=== PATIENT | female | born 1985 | race Caucasian/White ===

== ENCOUNTER 2016-11-19 10:52 | Inpatient (IN) | payer BC ==
[~2016-11-19] VITALS: Ht 160 cm; Wt 84.5 kg
[~2016-11-19 10:52] MED LIST: MTR600X PO; PRENTAB26 PO
[2016-11-19] MEDS ORDERED: LACTATED RINGER'S 1000ML 1,000 ML IV SCH (11:18)
[2016-11-19] MEDS ORDERED: LACTATED RINGER'S 1000ML 1,000 ML IV PRN (11:18)
--- NOTE | 2016-11-19 11:21 | Progress Note ---
Progress Note Admit Note 31 F P2002 at 39.3 weeks admitted in active labor. Cervix 6-7/100/-2/vertex/ membranes intact. FHT Cat 1. GBS negative. Will admit in labor and anticipate normal delivery.
[2016-11-19 11:41] VITALS: Ht 160 cm; Wt 84.5 kg
[2016-11-19] MEDS ORDERED: CHOL1000 PO (11:42)
[2016-11-19 12:03] LABS: HEMATOCRIT 37.2 % (37-47); MEAN CELL VOLUME 82.7 fL (80-100); MEAN CORPUSCULAR HEMOGLOBIN 27.3 pg (25-34); MEAN CORPUSCULAR HGB CONC 33.1 g/dl (32-36); MEAN PLATELET VOLUME 10.1 fL (7.4-10.4); PLATELET COUNT 265 K/uL (130-400); WHITE BLOOD COUNT 12.87 K/uL (4.8-10.8)
--- NOTE | 2016-11-19 14:24 | Progress Note ---
Progress Note cervix 8-9/100/-1 AROM clear fluid FHT Cat 1
--- NOTE | 2016-11-19 15:41 | Progress Note ---
Progress Note Delivery Note live male over intact perineum with Apgars 8/9 weight pending. Delayed cord clamping followed by cord blood collection and spontaneous delivery of intact placenta. No tears. Uterus firm below U and massaged with no bleeding noted. Patient did not want Pitocin. EBL 100 ml. Final sponge and instrument count are correct. Mom and baby stable.
[2016-11-19] MEDS ORDERED: ACETAMINOPHEN 325 MG TAB PO PRN (15:45)
[2016-11-19] MEDS ORDERED: OXYCODONE/ACETAMINOPHEN 5-325 TAB PO PRN (15:45)
[2016-11-19] MEDS ORDERED: MEASLES, MUMPS & RUBELLA VIRUS VIAL SQ. ONE (15:45)
[2016-11-19] MEDS ORDERED: ACETAMINOPHEN/CODEINE 300/30MG TAB PO PRN ×2 (15:45)
[2016-11-19] MEDS ORDERED: LANOLIN OINT EXT PRN ×2 (15:45)
[2016-11-19] MEDS ORDERED: DIPHTHERIA/TETANUS/PERTUSSIS 0.5 ML SYR/VIAL IM. ONE (15:45)
[2016-11-19] MEDS ORDERED: SUPERCREAM 0.870 % 15GM JAR EXT PRN (15:45)
[2016-11-19] MEDS ORDERED: BENZOCAINE 20% AER SPR 82.5 GM CAN EXT PRN (15:45)
[2016-11-19] MEDS ORDERED: HYDROCORTISONE ACETATE 25 MG SUPP PR PRN (15:45)
[2016-11-19] MEDS: DOCUSATE SODIUM 100 MG CAP PO SCH (20:12)
[2016-11-19 20:15] VITALS: BP 106/71; PULSE 80; TEMP 36.3; O2SAT 97
[2016-11-19] MEDS: IBUPROFEN 600 MG TAB PO PRN (22:42)
[2016-11-20 00:35] VITALS: BP 116/70; PULSE 75; TEMP 36.9; O2SAT 97
[2016-11-20 04:15] VITALS: BP 115/77; PULSE 73; TEMP 36.6; O2SAT 97
[2016-11-20 06:54] LABS: HEMATOCRIT 33.8 % (37-47)
[2016-11-20 07:45] VITALS: BP 106/70; PULSE 65; TEMP 36.5; O2SAT 97
[2016-11-20] MEDS: DOCUSATE SODIUM 100 MG CAP PO SCH ×2 (08:22→20:36)
[2016-11-20] MEDS: PRENATAL VITAMIN TAB PO SCH (08:22)
[2016-11-20] MEDS: FERROUS SULFATE 325 MG TAB PO SCH (08:22)
[2016-11-20] MEDS: IBUPROFEN 600 MG TAB PO PRN ×2 (08:23→20:35)
--- NOTE | 2016-11-20 08:59 | OB/GYN Progress Note ---
CLINICAL INFORMATICS SPECIALIST Progress Note Date of Service: Nov 20, 2016. Patient is seen and examined. She feels well, no complaints. Ambulating without dizziness Voiding without difficulty Tolerating regular diet with out N&V Bleeding is minimal No fever/ chills/ CP/ SOB/ N&V/ Leg pain Breast feeding without problems Date Time Temp Pulse Resp B/P Pulse Ox O2 Delivery O2 Flow Rate FiO2 11/20/16 07:45 36.5 65 18 106/70 97 Room Air 11/20/16 07:45 97 Room Air 11/20/16 04:15 36.6 73 18 115/77 97 Room Air 11/20/16 00:35 97 Room Air 11/20/16 00:35 36.9 75 16 116/70 97 Room Air 11/19/16 20:15 36.3 80 16 106/71 97 Room Air PE: General: Alert, orientedx3, NAD Abd: soft, NT, fundus firm, below Umbilicus Perineum intact, Lochia rubra minimal Ext; NT, no edema AP: 31 yo s/p , ppd# 1 VSS Afebrile doing well Continue routine care All questions were answered D/C home tomorrow
[2016-11-20 11:00] VITALS: BP 100/64; PULSE 71; TEMP 36.6
[2016-11-20 16:15] VITALS: BP 102/68; PULSE 72; TEMP 36.6
[2016-11-20] MEDS ORDERED: BISACODYL 5 MG TABEC PO SCH (20:00)
[2016-11-20 23:20] VITALS: BP 101/64; PULSE 77; TEMP 36.6; O2SAT 97
[2016-11-21] MEDS ORDERED: BISACODYL 10 MG SUPP PR PRN (07:00)
[2016-11-21 07:40] VITALS: BP 102/64; PULSE 73; TEMP 36.6
[2016-11-21] MEDS: FERROUS SULFATE 325 MG TAB PO SCH (08:11)
[2016-11-21] MEDS: DOCUSATE SODIUM 100 MG CAP PO SCH (08:11)
[2016-11-21] MEDS: PRENATAL VITAMIN TAB PO SCH (08:11)
--- NOTE | 2016-11-21 09:47 | Discharge Instructions ---
Discharge Instructions Admission Reason for Admission: Check Labor Discharge Discharge Diagnosis / Problem: Vaginal Delivery Discharge Goals Goal(s): Routine recovery after delivery Medications Continue Dispensed Medications: supercream, dermaplast, tucks, lansinoh Activity Recommendations Activity Limitations: per Instructions/Follow-up section . Instructions / Follow-Up Instructions / Follow-Up ACTIVITY RECOMMENDATIONS: * Gradual return to full activity over the next 2-3 weeks. * No lifting - nothing heavier than baby over the next 2-3 weeks. * Do not engage in vigorous exercise, sexual activity or sports until cleared by your physician. * Do not drive or operate any motorized equipment until cleared by your physician. * You may shower/bathe daily. BREAST CARE: If you are not breast feeding: * Wear a supportive bra 24 hours a day for one to two weeks. * Avoid stimulating your breasts and nipples as much as possible during the first few weeks after delivery. * When taking a shower, have the warm water hit your back, not breasts. * When your breasts feel full, apply ice packs. Usually three to four times a day helps ease the discomfort. * Take a mild pain medication (Tylenol/Motrin) when you are uncomfortable. If breast feeding: * Use breast milk to lubricate nipples. Lansinoh cream may be used for sore nipples. You do not need to remove cream prior to breast feeding. If using a different brand of cream, check the label for directions regarding removal of cream prior to nursing. * Wear a supportive bra. * If having problems with breasts or breast feeding, call a it consultant or your health care provider. EPISIOTOMY CARE: After delivery, if you have an episiotomy (stitches), the following steps will ease discomfort and aid healing. * For the first 24 hours after delivery, place ice packs next to your episiotomy to help reduce swelling. * After the first 24 hour-period, sitz baths, either portable or in the tub, are suggested. A shower with a shower arm sprayed over the episiotomy may be comforting. * Gifty care should be done after each voiding and bowel movement. Squirt warm water from a plastic bottle over the perineum (region of the body between the anus and urinary opening) and pat dry. * Use Dermoplast to ease discomfort. Shake container. [place] directly over the episiotomy. * Place a Tucks on a clean sanitary pad next to your episiotomy. OVER THE COUNTER MEDICATION: * For discomfort or pain, you may use Acetaminophen (Tylenol), Ibuprofen (Advil ), or Naproxen (Aleve) following the package directions. * For constipation you may use Colace following the package directions. SPECIAL CARE INSTRUCTIONS: When you are discharged from the hospital, it is important for you to follow the instructions listed below: * During the first week at home, you should be able to care for yourself and your baby. In addition, the usual light household activities are encouraged. * Limit your activities to the way you feel. Do not try to clean the house or move furniture. Be sensible. * If you actively engage in sports and have done so up until the time of your delivery, you may resume these activities as soon as you feel able. This may take up to one month or even longer. Use good judgment. * Continue to take your vitamins for at least six weeks after the of your baby. * Your diet need not be limited unless you were on a special diet before your delivery. Breast-feeding mothers need around 2500 calories per day and at least 64-80 ounces of fluid per day (8 to 10 glasses). * You should eat foods from the four major food groups. Crash diets or fad diets are to be avoided. Eating lean meats, fresh fruits and vegetables, low-fat dairy products, high fiber foods and a regular exercise program, will help you get back to your pre- weight without putting your health at risk. * Constipation is sometimes a problem after delivery. Take a mild laxative as needed. If breast feeding, Milk of Magnesia is acceptable to use. You may use a suppository or Fleets enema if no episiotomy. * A daily shower or tub bath is suggested. Be sure to thoroughly and gently dry the perineum. * A bloody vaginal discharge will usually continue until around four weeks post . A small amount of bleeding may continue for as long as six weeks. Vaginal discharge changes from the bright red bleeding after delivery to pink then brownish and finally yellowish-pink before becoming white and disappearing. * Bleeding may increase with activity. Your first period may come in 4-8 weeks. If you are breast feeding, your period may be delayed even longer. * [place] (sex) can begin whenever both you and your partner feel comfortable and do not have any form of genital infection. It is recommended that you wait until after your return appointment and discuss with your physician. If you have questions, please talk to your health care practitioner. A condom should be used to prevent infection and . * Foreplay, gentle intercourse and lubrication is very important the first several times to prevent pain. A water-based lubricant such as K-Y jelly or Astroglide may be used. * Tampons may be used six weeks after delivery. * Douching should be avoided for 6 weeks after delivery. * If you have RH negative blood and your baby is RH positive, you will receive RHOGAM by injection prior to discharge. The nurse will give you a card to keep with you that has the date and place that you received RHOGAM after delivery. * During your care, you had a Rubella screen done to check for the presence of rubella antibodies in your blood. If your test was negative, you will receive a Rubella vaccine prior to discharge. This vaccine may cause a fever, soreness at the injection site and flu-like symptoms. If these symptoms persist, notify your health care practitioner. is not advised for three months after a Rubella vaccine. There is a higher chance of having a baby with defects if conceived within three months of getting the vaccine. * If you were discharged 24 hours from delivery or before 48 hours: Visiting nurses will come to your home 48 hours after discharge to assess you and your baby. The visiting nurse will meet with you while you are in the hospital to arrange a time and get directions to your home. * Verbalizes understanding of car seat law as reviewed with patient nursing. * Car Seat hand-out given and reviewed with patient by nursing. * Shaken baby information reviewed with patient by nursing. Call you doctor if: * Heavy bleeding (saturating several pads an hour) or passing clots the size of your fist. * A fever >101 degrees F (38.3 degrees C) on two occasions four hours apart and/or chills. * Unusual pain in the pelvic or vaginal areas. * "Baby Blues" lasting longer than two weeks. If you have any questions or concerns, call your health care practitioner at . FOLLOW-UP VISIT: * Please call the office at to schedule a 6 week examination. It is important you keep this appointment. * It is important for you to make arrangements for either yearly or twice yearly check-ups thereafter. Current Hospital Diet Patient's current hospital diet: Regular Diet Discharge Diet Recommended Diet: Regular OB Diet Pending Studies Studies pending at discharge: no Medical Emergencies . Who to Call and When: Medical Emergencies: If at any time you feel your situation is an emergency, please call 911 immediately. . Non-Emergent Contact Non-Emergency issues call your: Primary Care Provider, Vocational Examiner . . "Provider Documentation" section prepared by Lexa Edwards. VTE Core Measure Inpt VTE Proph given/why not?: Treatment not indicated
--- NOTE | 2016-11-21 09:49 | OB/GYN Progress Note ---
SUBSCRIPTION CREW LEADER Progress Note Date of Service Nov 21, 2016. Subjective conversation w/ patient, physical exam Ambulation: ambulating normally Voiding: no voiding problems Passing Gas: Yes Diet Tolerance: Regular Diet Lochia: Small Feeding Type: Breast Feeding Pain: 11/06 Notes: Doing well, no concerns. Would like to go home today. Objective Vital Signs Date Time Temp Pulse Resp B/P Pulse Ox O2 Delivery O2 Flow Rate FiO2 11/20/16 23:20 97 Room Air 11/20/16 23:20 36.6 77 18 101/64 97 Room Air 11/20/16 16:15 36.6 72 16 102/68 Room Air 11/20/16 16:15 Room Air 11/20/16 11:00 36.6 71 18 100/64 Room Air Physical Exam General Appearance: WELL-APPEARING Respiratory/Chest: chest non-tender, lungs clear Cardiovascular: regular rate, rhythm Abdomen: normal bowel sounds, soft Fundus: Firm Extremities: normal range of motion, non-tender, no calf tenderness Assessment and Plan Post- Day Number: 2 Continue Routine Care: -D/C home today -F/U in 6 weeks.
[2016-11-21 12:45] VITALS: BP_DIAS 64; PULSE 73; TEMP 36.6
== END 2016-11-21 13:15 | disposition home or self-care (01) | DRG 775 ==
LOC: C.OPB 10:52 → C.LD 10:52 → C.OPB 11:21 → C.OBG 22:08
PROVIDERS: ADMIT Obstetrics & Gynecology; ATTEND Obstetrics & Gynecology
PROC: 10E0XZZ Delivery of Products of Conception, External Approach (ICD-10-PCS; principal; 2016-11-19)
DX: O80 Encounter for full-term uncomplicated delivery (principal); Z37.0 Single live birth; Z3A.39 39 weeks gestation of pregnancy

== ENCOUNTER 2019-06-03 04:49 | Inpatient (IN) ==
[2019-06-03] MEDS ORDERED: OXYTOCIN 30 UNITS/500 ML BAG IV PRN ×2 (05:27→07:33)
[2019-06-03] MEDS ORDERED: LACTATED RINGER'S 1,000 ML IV PRN (05:27)
[2019-06-03 05:48] LABS: Hematocrit (blood only) 32.4 % (37-47); Hemoglobin 10.5 g/dL (12.0-16.0); Mean Corpuscular Volume 77.7 fL (80-100); Mean Platelet Volume 10.5 fL (7.4-10.4); Platelet Count 250 K/uL (130-400); RDW Coefficient of Variation 14.3 % (11.5-14.5); RDW Standard Deviation 40.5 fL (36.4-46.3); Red Blood Count 4.17 M/uL (4.2-5.4); White Blood Count 9.13 K/uL (4.8-10.8)
--- NOTE | 2019-06-03 05:53 | History & Physical Report ---
Date of Service June 03, 2019 Assessment & Plan (1) Uterine contractions at greater than 20 weeks of gestation: 34 yo at 40.2 wks, presented in active labor VSS Afebrile FHR reassuring GBS negative Declined intervention/ epidural and IV fluids Anticipate History of Present Illness Chief Complaint: Contractions Primary Care Provider: NO PCP Patient is a 34 yo at 40.2 wks who started to feel ctxs around 130 am No LOF/VB +FM She presented to L&D in active labor and declined pain management and IV fluids Her has been uncomplicated GBS negative Allergies Allergy/AdvReac Type Severity Reaction Status Date / Time No Known Allergies Allergy Unverified 11/19/16 11:41 Home Medications Home Medications Medication Instructions Recorded Confirmed Type PNV cmb#[id number]-ferrous fumarate-FA 1 tab PO DAILY 06/03/19 06/03/19 History [] cholecalciferol (vitamin D3) 1 unit PO DAILY 06/03/19 06/03/19 History [Vitamin D3] Patient History Social History Preferred Language: Greek Communication Ability: Effective Property Assistant Required: No Beliefs That Will Affect Care: None marital status: Current Living Situation: Family Current Living Situation Comment: and children Other Information That Helps Us Care for You: No Feels Safe at Home: Yes Safety Concerns: Feels Safe At This Time Smoking Status: Never smoker Hx Alcohol Use: No Hx Substance Use: No 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 No h/o any STD's Review of Systems All systems reviewed & are unremarkable except as noted in HPI & below Physical Exam Constitutional: WD/WN, vitals as above well nourished and + in distress (with contractions) Gastrointestinal (Abdomen): normal bowel sounds, soft, nontender, no hepatosplenomegaly (Gravid) Inspection/Auscultation: abdomen normal to inspection Musculoskeletal: no cyanosis or clubbing, extremities motor strength 5/5 Extremities: extremities normal to inspection (NT, no edema) Genitourinary: normal external appearance Manual OB Exam: + cervical dilation 7 cm, + cervical effacement 70% and + station -1 OB Exam Monitor Tracing: + category I Results & Data Vital Signs (Past 12 Hours) Vital Signs Temp Pulse Resp BP 06/03/19 05:01 36.5 C 70 18 119/73
[2019-06-03 06:13] LABS: Mean Corpuscular Hgb Conc 32.4 g/dL (32-36)
[2019-06-03] MEDS ORDERED: ACETAMINOPHEN 325 MG TAB PO PRN (07:33)
[2019-06-03] MEDS ORDERED: MEASLES, MUMPS & RUBELLA VIRUS VIAL SQ ONE (07:33)
[2019-06-03] MEDS ORDERED: BISACODYL 10 MG SUPP PR PRN (07:33)
[2019-06-03] MEDS ORDERED: BENZOCAINE 20% AER SPR 82.5 GM CAN EXT PRN (07:33)
[2019-06-03] MEDS ORDERED: HYDROCORTISONE ACETATE 25 MG SUPP PR PRN (07:33)
[2019-06-03] MEDS ORDERED: SUPERCREAM 0.870% 15 GM JAR EXT PRN (07:33)
[2019-06-03] MEDS ORDERED: DIPHTHERIA/TETANUS/PERTUSSIS 0.5 ML SYR/VIAL IM ONE (07:33)
--- NOTE | 2019-06-03 07:45 | Delivery Summary ---
DATE OF OPERATION: 06/03/2019 TIME OF DELIVERY OF BABY: 17:17 a.m. TIME OF DELIVERY OF PLACENTA: 17:28 a.m. DETAILS OF DELIVERY: The patient was found to be fully dilated and desired to push. She pushed through 2 contractions and delivered the head without difficulty. Shoulders were delivered with minimal traction. Baby was handed off to the mother where mouth and nose were suctioned. Cord was clamped x2 and cut at 1 minute delay and then cord blood was obtained. Vagina and perineum were checked for lacerations. They were intact. No lacerations were found and placenta was found to be in the vagina, delivered spontaneously intact and complete. Uterus was explored and found to be empty. Lower segment was cleared off all clots and debris. Placenta was found to be in the vagina, delivered spontaneously intact and complete. Uterus was explored, found to be empty. Lower segment was cleared of all clots and debris. Fundus was firm. EBL was 100 ml. Mom and baby tolerated the procedure well. Baby was a viable male , Apgars 9/10. 4149 grams. No complications happened and I was present during whole procedure. I attest to the content of the Intraoperative Record and any orders documented therein. Any exceptions are noted below. MTDD
[2019-06-03] MEDS ORDERED: OXYTOCIN 10 UNITS/ML VIAL ONE (07:57)
[2019-06-03] MEDS: FERROUS SULFATE 325 MG TAB PO SCH (07:59)
[2019-06-03] MEDS: DOCUSATE SODIUM 100 MG CAP PO SCH ×2 (07:59→19:23)
[2019-06-03] MEDS: PRENATAL VITAMIN 1 TAB PO SCH (07:59)
[2019-06-03] MEDS: IBUPROFEN 600 MG TAB PO PRN (16:04)
[2019-06-04 08:01] LABS: Hematocrit (blood only) 28.5 % (37-47); Hemoglobin 9.2 g/dL (12.0-16.0); Mean Corpuscular Hgb Conc 32.3 g/dL (32-36); Mean Corpuscular Volume 79.2 fL (80-100); Mean Platelet Volume 10.1 fL (7.4-10.4); Platelet Count 223 K/uL (130-400); RDW Coefficient of Variation 14.3 % (11.5-14.5); White Blood Count 12.06 K/uL (4.8-10.8)
[2019-06-04] MEDS: DOCUSATE SODIUM 100 MG CAP PO SCH (08:32)
[2019-06-04] MEDS: FERROUS SULFATE 325 MG TAB PO SCH (08:32)
[2019-06-04] MEDS: PRENATAL VITAMIN 1 TAB PO SCH (08:32)
--- NOTE | 2019-06-04 09:38 | Obstetrical Progress Note ---
Date of Service June 04, 2019 Subjective Patient is seen and examined. She feels well, no complaints. Likes to be discharged Ambulating without dizziness Voiding without difficulty Tolerating regular diet with out N&V Bleeding is minimal No fever/ chills/ CP/ SOB/ N&V/ Leg pain Breast feeding without problems Vital Signs Temp Pulse Resp BP Pulse Ox 06/04/19 08:00 36.7 C 67 18 107/69 98 06/04/19 00:00 36.7 C 66 16 114/69 98 06/03/19 19:25 36.5 C 84 16 106/59 L 97 06/03/19 15:55 36.8 C 83 16 106/70 06/03/19 13:15 36.8 C 78 16 97/56 L 98 06/03/19 09:45 36.8 C 74 18 121/64 98 06/04/19 Range/Units 07:46 WBC 12.06 H (4.8-10.8) K/uL RBC 3.60 L (4.2-5.4) M/uL Hgb 9.2 L (12.0-16.0) g/dL Hct 28.5 L (37-47) % MCV 79.2 L (80-100) fL MCH 25.6 (25-34) pg MCHC 32.3 (32-36) g/dL RDW Std Deviation 41.0 (36.4-46.3) fL RDW Coeff of [place] 14.3 (11.5-14.5) % Plt Count 223 (130-400) K/uL MPV 10.1 (7.4-10.4) fL PE: General: Alert, orientedx3, NAD Abd: soft, NT, fundus firm, below Umbilicus Perineum intact, Lochia rubra minimal Ext; NT, no edema AP: 34 yo s/p , ppd# 1 VSS Afebrile doing well Continue routine care All questions were answered Desires d/c today D/C home ,f/u in office Results & Data Vital Signs (Past 12 Hours) Vital Signs Temp Pulse Resp BP Pulse Ox 06/04/19 08:00 36.7 C 67 18 107/69 98 06/04/19 00:00 36.7 C 66 16 114/69 98
[2019-06-04] MEDS: IBUPROFEN 600 MG TAB PO PRN (14:26)
[2019-06-04] MEDS ORDERED: BISACODYL 5 MG TABEC PO SCH (20:00)
== END 2019-06-04 17:55 | disposition home or self-care (01) | DRG 807 ==
LOC: OPB 04:49 → 4S1 05:00 → 4S2 09:50